=== PATIENT | male | born 1975 | race Caucasian/White ===

== ENCOUNTER 2016-09-07 10:36 | Emergency (ER) | payer MEDICAID ==
[~2016-09-07] VITALS: Ht 182.9 cm; Wt 105.0 kg
[2016-09-07 10:37] VITALS: BP 148/81
== END 2016-09-07 12:34 | disposition home or self-care (01) ==
LOC: ED 11:07
DX: M25.572 Pain in left ankle and joints of left foot (principal); F17.210 Nicotine dependence, cigarettes, uncomplicated; Z88.0 Allergy status to penicillin; Z79.899 Other long term (current) drug therapy
CPT/HCPCS: 99284